=== PATIENT | female | born 1995 | race Caucasian/White ===

== ENCOUNTER 2017-11-23 09:52 | Inpatient (IN) | payer OTHER ==
[2017-11-23 11:06] LABS: RPR Titer ND
[2017-11-23] MEDS ORDERED: OXYTOCIN/LR 20 UNIT/1,000 ML BAG IV ONE (11:11)
[2017-11-23] MEDS ORDERED: PROMETHAZINE 25 MG/ML VIAL IM PRN (11:14)
[2017-11-23] MEDS ORDERED: CARBOPROST TROME 250 MCG/ML IM PRN (11:14)
[2017-11-23] MEDS ORDERED: BUTORPHANOL 1 MG/ML INJ IV PRN (11:14)
[2017-11-23] MEDS ORDERED: METHYLERGONOVINE 0.2MG/ML AMP IM PRN (11:14)
[2017-11-23] MEDS ORDERED: Ringers Lactate 1,000 ML IV PRN (11:14)
[2017-11-23] MEDS ORDERED: MIDAZOLAM HCL 2 MG/2 ML INJ IV PRN (11:14)
[2017-11-23] MEDS ORDERED: MEPERIDINE HCL 25 MG/0.5 ML IV PRN (11:14)
[2017-11-23] MEDS ORDERED: ROPIVACAINE HCL 100 ML IV PRN (11:18)
[2017-11-23] MEDS ORDERED: ROPIVACAINE HCL 0.2% 20ML AMP IV ONE (11:18)
[2017-11-23] MEDS ORDERED: FENTANYL CITR 100 MCG/2 ML IV ONE (11:19)
[2017-11-23 11:29] VITALS: BMI 33.7
[2017-11-23 11:42] LABS: Absolute Lymphocytes (CBC) 1.6 K/uL (0.7-4.9); Absolute Monocytes 0.7 K/uL (0.1-1.3); Absolute Neutrophil 7.8 K/uL (1.8-8.0); Basophils % 0.3 % (0-1.3); Eosinophils % 0.2 % (0-4.4); Hematocrit 33.6 % (36.0-45.0); Lymphocytes % 15.8 % (15.3-44.8); MCH 28.7 pg (27.0-35.0); MCV 85.4 fL (80-100); MPV 9.9 fL (7.6-11.3); RBC Red Blood Cell Count 3.93 M/uL (3.86-4.86)
[2017-11-23] MEDS ORDERED: Ringers Lactate 1,000 ML IV SCH (12:00)
[2017-11-23] MEDS ORDERED: OXYTOCIN/LR 20 UNIT/1,000 ML BAG IV SCH ×2 (12:00→17:00)
[2017-11-23] MEDS ORDERED: BUPIVACAINE 0.25% PF 10 ML VIAL ONE (15:45)
[2017-11-23] MEDS ORDERED: METOCLOPRAMIDE 10 MG/2mL INJ IV SCH (16:00)
[2017-11-23] MEDS ORDERED: FAMOTIDINE 20 MG/2 ML VIAL IV SCH (16:00)
[2017-11-23] MEDS ORDERED: NA CIT/CITRIC AC 30 ML ORAL UDC PO ONE (16:00)
[2017-11-23] MEDS ORDERED: Oxycodone HCl/Acetaminophen 1 TAB TAB PO PRN ×2 (16:47)
[2017-11-23] MEDS ORDERED: ACETAMINOPHEN 500 MG TAB PO PRN (16:47)
[2017-11-23] MEDS ORDERED: DOCUSATE NA/SENNA CONC 1 TAB PO PRN (16:47)
[2017-11-23] MEDS ORDERED: DIPHENHYDRAMINE 25 MG TAB/CAP PO PRN (16:47)
[2017-11-23] MEDS ORDERED: BISACODYL 10 MG RECTAL SUPP RECT PRN (16:47)
[2017-11-23] MEDS: IBUPROFEN 200 MG TAB PO PRN (18:10)
--- NOTE | 2017-11-23 21:27 | PREOPHP ---
Date of Admission: 11/23/2017 A 22-year-old female, 3, para 1, at 37 weeks 3 days, came in my office, reporting rupture of membranes shortly before coming in, was 3 cm, rupture of membranes, clear fluid. Sent to labor and d coral. She was started on Pitocin, now reached 8 cm, 100% effaced, 0 to +1 station. Anticipate de livery relatively soon. Rh positive, immune to Rubella. Negative beta strep screen, doing well, has an epidural. LASHONDAC/MODIris Voice ID: [id number]
[2017-11-23 22:22] LABS: RPR (Rapid Plasma Reagin) NON-REACT (NON-REACT)
--- NOTE | 2017-11-24 03:37 | OP ---
Surgeon: Mayito Malik MD A 22-year-old 3, para 1, 37 weeks 3 days experienced spontaneous rupture of membranes, was se nt to Labor and delivery, was 3 cm on admission vertex -2 station. Rh positive, immune to Rubella. Negative beta strep screen. Started on Pitocin. Had epidural anesthesia started at approximately 4 cm. After she reached a 5 cm, went rapidly to complete. Second stage of about 15-20 minutes. Spont aneous vaginal delivery of an estimated 7-pound male infant. Nuchal cord x1. Apgars 9 and 9. No ep isiotomy. No laceration. Schultze delivery of the placenta, which was inspected and noted to be int act and normal. Less than 300 cc blood loss. Tolerated all procedures well. Final Diagnoses: 1.Intrauterine gestation, 37 weeks 3 days. 2.Spontaneous rupture of membranes. 3.Vaginal delivery. 4.Nuchal cord. 5.Epidural anesthesia. JOVI/SHARON Voice ID: [id number] Report ID: [id number]
[2017-11-24] MEDS: IBUPROFEN 200 MG TAB PO PRN ×3 (07:10→16:15)
[2017-11-24 12:28] VITALS: BP 117/68; TEMP 97.6
[2017-11-24] MEDS ORDERED: Tdap (Diph,Pertuss(Acell),Tet Vac) 0.5 ML SYR IMVAC ONE ×2 (16:28→16:50)
--- NOTE | 2017-11-24 23:26 | DS ---
Date of Discharge: 11/24/2017 Jennifer Prieto, 22-year-old, 3, para 1, AB1 at 37 weeks 3 days, who experienced spontaneous rup ture of membranes, sent to Labor and Delivery, noted to be 3 cm vertex -2 station. Started on Pitoci n. Had epidural anesthesia during her labor. Second stage of 15 minutes or less. Spontaneous vagin al delivery of an estimated 7-pound male infant, Apgars 9 and 9. No episiotomy. No lacerations. Sc hultze delivery of placenta which was inspected and noted to be intact and normal. Less than 300 cc blood loss. ; afebrile, ambulating, and voiding. Lochia is normal. She will be dismissed later today. Dismissed with tramadol for analgesia. She knows this will go to the breast milk and may take Motrin instead. She is Rh positive, immune to Rubella. She has not had her Tdap administered yet and will probably get that before she goes home. To see me in 6 weeks for followup, to report any temperatur e elevation of 100 degrees or greater, severe pain, heavy bleeding, or any other type of abnormalitie s. Final Diagnoses: Intrauterine gestation, 37 weeks 3 days, spontaneous rupture of membranes, vaginal delivery, epidural anesthesia. JOVI/SHARON Voice ID: [id number] Report ID: [id number]
[2017-11-25 18:27] LABS: HBsAG Nonreactive (Nonreactive)
== END 2017-11-24 18:25 | disposition home or self-care (01) | DRG 775 ==
LOC: 2ND-WC 09:52
PROVIDERS: ADMIT Specialist; ATTEND Specialist
PROC: 10E0XZZ Delivery of Products of Conception, External Approach (ICD-10-PCS; principal; 2017-11-23)
DX: O69.81X0 Labor and delivery complicated by cord around neck, without compression, not applicable or unspecified (principal); Z3A.37 37 weeks gestation of pregnancy; Z37.0 Single live birth
CPT/HCPCS: 36415; 85025; 86592; 86901; 87340; 90715; J2590; J2795

== ENCOUNTER 2020-08-28 07:22 | Day surgery (SDC) | payer OTHER ==
[2020-08-28 07:52] LABS: Specific Gravity 1.015 (1.005-1.030)
[2020-08-28] MEDS ORDERED: Ringers Lactate 1,000 ML IV ONE (08:04)
[2020-08-28] MEDS ORDERED: propofoL 200 MG/20 ML VIAL IV ONE (08:44)
[2020-08-28] MEDS ORDERED: LIDOCAINE 2% MPF 5 ML VIAL ONE (08:44)
[2020-08-28] MEDS ORDERED: ROCURONIUM 50 MG/5 ML VIAL IV ONE (08:44)
[2020-08-28] MEDS ORDERED: FENTANYL CITR 100 MCG/2 ML ONE (08:44)
[2020-08-28] MEDS ORDERED: dexAMETHasone 10 MG/ML VIAL ONE (08:44)
[2020-08-28] MEDS ORDERED: MIDAZOLAM HCL 2 MG/2 ML INJ ONE (08:44)
[2020-08-28] MEDS ORDERED: ONDANSETRON 4 MG/2 ML VIAL ONE ×2 (09:18→10:11)
[2020-08-28] MEDS ORDERED: MORPHINE 10 MG/ML VIAL ONE (09:18)
--- NOTE | 2020-08-28 09:52 | P.OP ---
Pre-Op Diagnosis: Recurrent acute tonsillitis Post-Op Diagnosis: Recurrent acute tonsillitis, Chronic tonsillitis Procedure: Tonsillectomy Anesthesia: Other (GA via ETT) Estimated blood loss: Other (10ml) Specimen: Other (Bilateral tonsils) Complications: None Implants: None Indication: Patient persistent issues in spite of good medical management. Details of Operation: The patient was brought to the operating room and placed under general anesthesia via endotracheal tube. The head of bed was turned 90 degrees. A Shoulder roll was placed and the neck extended. A head drape was applied. The McIvor mouth gag was placed and suspended from the Andrea stand. The oxygen concentrate was confirmed with the ordnance artificer helper and was less than forty percent. Weight-based dexamethasone was administered by the ordnance artificer helper. The soft palate was palpated and there was no submucous cleft. A red rubber catheter was placed in the nose and secured to retract the soft palate. The tonsils were noted to be large, chronically inflammed with deep crypts and liths. The left tonsil was grasped with a straight Allis clamp. The bovie electocautery was used to incision the mucosa over the anterior pillar and identify the tonsillar capsule. The tonsil was dissected using cautery and blunt dissection until free from soft tissue attachments. The left tonsil was friable and scarred to underlying muscle layer and was difficult to remove. A tonsil ball was placed to aid hemostasis. The right tonsil was removed in a standard manner. The laryngeal mirror was used to visualize the nasopharynx. The adenoid size was minimal. The adenoids were not removed using suction cautery. All packing was removed. A Salum sump orogastric tube was used to decompress the stomach. The red rubber catheter was removed and used to suction the nasopharynx and nasal cavity. The mouth gag was relaxed, then re-suspended and there was some bleeding in the superior and anterior/lateral right fossa and pressure with a tonsil sponge was applied until hemostasis ensured. The mouth gag was removed; there was no evidence of injury to the lips, teeth or tongue. The mandible was mobile. Disposition: The patient was then awakened from anesthesia and taken to the recovery room in stable condition.
[2020-08-28] MEDS: HYDROMORPHONE HCL 1 MG/ML INJ ONE ×2 (10:03→10:20)
[2020-08-28] MEDS ORDERED: PROMETHAZINE INJ 25 MG/ML AMP ONE (10:24)
[2020-08-28] MEDS ORDERED: HYDROCOD 2.5mg-ACETAMIN 108mg/5mL Soln ONE (11:27)
[2020-08-28 13:19] VITALS: BP 116/87; TEMP 97; O2SAT 100
== END 2020-08-28 12:30 | disposition home or self-care (01) ==
LOC: OR 07:22 → MERGE 08:15 → OR 12:30
PROVIDERS: ATTEND Otolaryngology
PROC: 0CTPXZZ Resection of Tonsils, External Approach (ICD-10-PCS; principal; 2020-08-28 08:45)
DX: J03.01 Acute recurrent streptococcal tonsillitis (principal); J35.01 Chronic tonsillitis; U07.1 COVID-19
CPT/HCPCS: 81025; 88304; 42826; U0002; J2704; J2550; J2250; J3010; J1100; J1170; J7120; J2405 ×2